=== PATIENT | female | born 1995 | race Caucasian/White ===

== ENCOUNTER 2019-02-03 20:20 | Emergency (ER) | payer OTHER ==
[~2019-02-03] VITALS: Ht 157.5 cm; Wt 73.8 kg
[~2019-02-03 20:20] MED LIST: FERR-55 PO; IBUP800T48 PO; ONDA4TAB8 PO; OXYC-438 PO; PNV1TABL43 PO
[2019-02-03 20:27] VITALS: Ht 157.5 cm; Wt 73.8 kg
[2019-02-03] MEDS ORDERED: SOD CHLORIDE 0.9% 1,000 ML IV STA (21:12)
[2019-02-03] MEDS ORDERED: ONDANSETRON 4 MG INJ IV STA (21:12)
[2019-02-03] MEDS ORDERED: KETOROLAC 30 MG INJ IV STA (21:12)
[2019-02-03 23:35] VITALS: BP 121/83; PULSE 69; RESP 17
== END 2019-02-03 23:35 | disposition home or self-care (01) ==
LOC: FTE 20:20
DX: K80.20 Calculus of gallbladder without cholecystitis without obstruction (principal); J45.909 Unspecified asthma, uncomplicated
CPT/HCPCS: 36415; 76705; 80053; 81025; 83690; 85025; 96361; 96374; 96375; J1885; J2405; J7030; Z7502

== ENCOUNTER 2019-02-05 20:41 | Inpatient (IN) | payer OTHER ==
[~2019-02-05] VITALS: Ht 157.5 cm; Wt 76.9 kg
[2019-02-05] MEDS ORDERED: SOD CHLORIDE 0.9% 1,000 ML IV STA (20:50)
[2019-02-05] MEDS ORDERED: ONDANSETRON 4 MG INJ IV STA (20:55)
[2019-02-05] MEDS ORDERED: HYDROmorphONE 1 MG/ML SYG IV STA (20:55)
[2019-02-05] MEDS ORDERED: ACETAMINOPHEN 325 MG TAB PO PRN ×2 (22:30)
[2019-02-05] MEDS ORDERED: NACL 0.9% 3 ML SYG IV SCH (22:30)
[2019-02-05] MEDS ORDERED: ONDANSETRON 4 MG INJ IV PRN ×2 (22:30)
[2019-02-05] MEDS: HYDROmorphONE 0.5 MG/0.5 ML SYG IV PRN (22:35)
[2019-02-05 23:23] VITALS: Ht 157.5 cm; Wt 76.9 kg
[2019-02-05 23:31] VITALS: BP 124/82; PULSE 70; RESP 18
[2019-02-06] MEDS: SOD CHLORIDE 0.9% 1,000 ML IV SCH ×3 (00:05→23:10)
[2019-02-06 01:44] VITALS: BP 112/77; PULSE 65; RESP 17
[2019-02-06] MEDS: HYDROmorphONE 0.5 MG/0.5 ML SYG IV PRN ×4 (02:08→20:33)
[2019-02-06 08:08] VITALS: BP 106/67; PULSE 53; RESP 16
[2019-02-06 15:06] VITALS: BP 109/76; PULSE 50; RESP 16
[2019-02-06 20:18] VITALS: BP 111/72; PULSE 61; RESP 16
[2019-02-07] VITALS (23 sets, daily range): BP systolic 97–130; BP diastolic 60–84; PULSE 52–84; RESP 11–20
[2019-02-07] MEDS: HYDROmorphONE 0.5 MG/0.5 ML SYG IV PRN ×4 (00:59→20:20)
[2019-02-07] MEDS: SOD CHLORIDE 0.9% 1,000 ML IV SCH ×3 (00:59→20:00)
[2019-02-07] MEDS ORDERED: BUPIVACAINE 0.5%/EPI (SDV) 30 ML INJ ONE (15:09)
[2019-02-07] MEDS ORDERED: MIDAZOLAM 1 MG/ML 2 ML INJ ONE (15:23)
[2019-02-07] MEDS ORDERED: ROPIVACAINE 0.5 % 30 ML VIAL ONE (16:14)
[2019-02-07] MEDS ORDERED: GLYCOPYRROLATE 0.4 MG INJ ONE (16:25)
[2019-02-07] MEDS ORDERED: ROCURONIUM 50 MG INJ ONE (16:25)
[2019-02-07] MEDS ORDERED: LIDOCAINE 2% (SDV) 5 ML INJ ONE (16:25)
[2019-02-07] MEDS ORDERED: PROPOFOL 20 ML ONE (16:25)
[2019-02-07] MEDS ORDERED: ONDANSETRON 4 MG INJ ONE (16:26)
[2019-02-07] MEDS ORDERED: NEOSTIGMINE 3 MG/3 ML SYRINGE ONE (16:26)
[2019-02-07] MEDS ORDERED: OXYCODONE/ACETAMINOPHEN (5/325) TAB PO PRN (16:30)
[2019-02-07] MEDS ORDERED: morphine 2 MG INJ IV PRN (16:30)
[2019-02-07] MEDS ORDERED: METOCLOPRAMIDE 10 MG INJ IV PRN (16:30)
[2019-02-07] MEDS ORDERED: HYDROmorphONE 1 MG/5 ML IV SYRINGE IV PRN ×2 (16:30)
[2019-02-07] MEDS ORDERED: DIPHENHYDRAMINE 50 MG INJ IV PRN (16:30)
[2019-02-07] MEDS ORDERED: MEPERIDINE 25 MG INJ IV PRN (16:30)
[2019-02-07] MEDS ORDERED: FENTAnyl 50 MCG/ML VIAL IV PRN (16:30)
[2019-02-07] MEDS ORDERED: KETOROLAC 30 MG INJ IV PRN (16:30)
[2019-02-07] MEDS ORDERED: ONDANSETRON 4 MG INJ IV PRN ×2 (16:30)
[2019-02-07] MEDS ORDERED: HYDROmorphONE 1 MG/5 ML IV SYRINGE IV ONE (16:48)
[2019-02-08] VITALS (22 sets, daily range): BP systolic 110–172; BP diastolic 71–105; PULSE 46–92; RESP 11–25
[2019-02-08] MEDS: OXYCODONE/ACETAMINOPHEN (5/325) TAB PO PRN (04:43)
[2019-02-08] MEDS: SOD CHLORIDE 0.9% 1,000 ML IV SCH (07:38)
[2019-02-08] MEDS: HYDROmorphONE 0.5 MG/0.5 ML SYG IV PRN (14:57)
[2019-02-08] MEDS ORDERED: FENTAnyl 50 MCG/ML VIAL ONE (17:21)
[2019-02-08] MEDS ORDERED: CEFAZOLIN 1 GM INJ ONE (17:21)
[2019-02-08] MEDS ORDERED: PROPOFOL 20 ML ONE (17:21)
[2019-02-08] MEDS ORDERED: MIDAZOLAM 1 MG/ML 2 ML INJ ONE (17:21)
[2019-02-08] MEDS ORDERED: ROCURONIUM 50 MG INJ ONE (17:21)
[2019-02-08] MEDS ORDERED: HYDROmorphONE 1 MG/5 ML IV SYRINGE IV PRN ×2 (17:30)
[2019-02-08] MEDS ORDERED: ONDANSETRON 4 MG INJ IV PRN (17:30)
[2019-02-08] MEDS ORDERED: METOCLOPRAMIDE 10 MG INJ IV PRN (17:30)
[2019-02-08] MEDS ORDERED: FENTAnyl 50 MCG/ML VIAL IV PRN ×2 (17:30)
[2019-02-08] MEDS ORDERED: OXYCODONE/ACETAMINOPHEN (5/325) TAB PO PRN (17:30)
[2019-02-08] MEDS ORDERED: LABETALOL HCL 20MG INJ IV PRN (17:30)
[2019-02-08] MEDS ORDERED: EPHEDrine 25 MG/5 ML SYG IV PRN (17:30)
[2019-02-08] MEDS ORDERED: IOHEXOL 300MG/ML 30 ML BTL ONE (17:38)
[2019-02-08] MEDS ORDERED: LABETALOL HCL 20MG INJ ONE (18:46)
[2019-02-08] MEDS ORDERED: METOCLOPRAMIDE 10 MG INJ ONE (18:59)
[2019-02-08] MEDS ORDERED: ONDANSETRON 4 MG INJ ONE (18:59)
[2019-02-08] MEDS ORDERED: DEXAMETHASONE 4 MG/ML 5 ML INJ ONE (19:00)
[2019-02-08] MEDS ORDERED: KETOROLAC 30 MG INJ ONE (19:00)
[2019-02-08] MEDS ORDERED: SUGAMMADEX SODIUM 200 MG/2 ML VIAL IV ONE (19:00)
[2019-02-09] MEDS: OXYCODONE/ACETAMINOPHEN (5/325) TAB PO PRN (01:00)
[2019-02-09 02:00] VITALS: BP 143/75; PULSE 65; RESP 17
[2019-02-09 07:33] VITALS: BP 120/82; PULSE 63; RESP 18
[2019-02-09 14:14] VITALS: BP 124/81; PULSE 62
[2019-02-09] MEDS ORDERED: MAGNESIUM HYDROXIDE 30ML CUP PO ONE (16:30)
== END 2019-02-09 18:25 | disposition home or self-care (01) | DRG 419 ==
LOC: E/R 20:41 → 2NE 22:09
PROVIDERS: ADMIT Family Medicine; ATTEND Family Medicine
PROC: 0FT44ZZ Resection of Gallbladder, Percutaneous Endoscopic Approach (ICD-10-PCS; principal; 2019-02-07 15:00)
PROC: 0FD98ZX Extraction of Common Bile Duct, Via Natural or Artificial Opening Endoscopic, Diagnostic (ICD-10-PCS; 2019-02-08)
PROC: 0F778ZZ Dilation of Common Hepatic Duct, Via Natural or Artificial Opening Endoscopic (ICD-10-PCS; 2019-02-08)
DX: K80.64 Calculus of gallbladder and bile duct with chronic cholecystitis without obstruction (principal); E66.9 Obesity, unspecified; F17.200 Nicotine dependence, unspecified, uncomplicated; K80.50 Calculus of bile duct without cholangitis or cholecystitis without obstruction; J45.909 Unspecified asthma, uncomplicated; Z68.31 Body mass index [BMI] 31.0-31.9, adult; Z71.3 Dietary counseling and surveillance
CPT/HCPCS: 36415; 74181; 74330; 76705; 80048; 80053; 80061; 80076; 81001; 81025; 83036; 83690; 83735; 84443; 84703; 85025; 85610; 85730; 88104; 88304; 88305; 96374; 96375; J0690; J1100; J1170; J1885; J2175; J2250; J2405; J2710; J2765; J2795; J3010; J7030; Q9967